=== PATIENT | female | born 1995 ===

== ENCOUNTER 2017-12-18 00:59 | Emergency (ER) | payer OTHER ==
[~2017-12-18] VITALS: Ht 160 cm; Wt 60.8 kg
[2017-12-18 01:07] VITALS: TEMP 36.8; Ht 160 cm; Wt 60.8 kg
[2017-12-18] MEDS ORDERED: KETOROLAC TROMETHAMINE 60 MG/2 ML VIAL ONE (01:23)
[2017-12-18] MEDS ORDERED: HYDROmorphone INJ 1 MG/ML SYR ONE (01:33)
[2017-12-18] MEDS ORDERED: HYDROmorphone INJ 1 MG/ML SYR IM STA (01:34)
--- NOTE | 2017-12-18 02:13 | EMERGENCY ROOM VISIT NOTE ---
ED Visit Note First contact with patient: 01:07 CHIEF COMPLAINT: Shoulder pain HISTORY OF PRESENT ILLNESS: This patient complains of left shoulder pain after reaching for her keys over her head. Patient has a history of shoulder dislocation and symptoms similar. Pain currently 8 out of 10. Worse with movement and better with rest. It does not radiate.. There is marked limitation of motion of the arm because of the pain. The patient did not hear a cracking the sound at the time of the injury. The pain is steady and severe and much worse with any movement of the arm. Patient states her blood pressure normally runs low and 90/60 is normal for her. REVIEW OF SYSTEMS: A 6 system review of systems was completed with positives and pertinent negatives listed in the HPI. PMH: The patient is healthy; there is no significant medical or surgical history. Patient has a history of recurrent shoulder dislocation SOCIAL HISTORY: Patient lives at home. Non-smoker, no excessive alcohol use. [employer] student. PHYSICAL EXAM: Vital Signs: Reviewed nurse's notes. The shoulder is slightly swollen and deformed on inspection. There is a palpable defect on the anterior aspect of the shoulder and the entire anterior shoulder is tender. The range of motion is markedly reduced in all directions because of the pain. There is no tenderness of the distal clavicle. The lungs are clear to auscultation. EMERGENCY DEPARTMENT COURSE: An X-ray of the shoulder shows an anterior, inferior dislocation. The patient consented to procedure and patient was given Toradol and Dilaudid. Anterior Shoulder Dislocation Reduction Indication: Shoulder dislocation Verbal consent obtained. Risks and benefits were explained with the usual customary discussion. A time out was taken. Neurovascular examination before the procedure revealed intact. The left shoulder glenohumeral dislocation was reduced by placing the patient prone and applying gentle downward inline traction on the humerus, with the elbow flexed at 90 degrees, while scapula manipulation was applied. This resulted in an easy reduction without complication. Neurovascular examination after the procedure revealed intact. The patient had significant pain relief and tolerated the procedure well. Post reduction x-ray showed that the head of the humerus was back in the anatomical position. A shoulder sling was placed and the patient was instructed as below. Patient was advised to follow-up orthopedics for definitive care for her recurrent shoulder dislocation. Patient was advised to return to the ER immediately for severe pain, numbness, tingling, worsening signs or symptoms or as needed. She is discharged home in stable condition with friend driving. DIAGNOSIS: Shoulder dislocation, left DISCHARGE INSTRUCTIONS & TREATMENT: DO NOT drive, drink alcohol, operate machinery, or perform dangerous activities today. You were given medications in the ER that can affect your ability to safely function or operate a vehicle. Ibuprofen(Motrin, Advil) may be used for fever or pain. Use 600mg every six hours as needed. Take with food. Avoid using more than 2400mg in a 24 hour period. Do not use 2400mg per day for more than three consecutive days without physician direction. Prolonged inappropriate use can lead to stomach upset or ulcers. This medication can be taken if you need to drive, work, or perform activities which may be dangerous when taking narcotic pain medication. (AND/OR) Acetaminophen(Tylenol) may be used for fever or pain. Use 1000mg every six hours as needed. Avoid using more than 3000mg in a 24 hour period. This medication can be taken if you need to drive, work, or perform activities which may be dangerous when taking narcotic pain medication. Ice compresses for 20 minutes at a time four times daily for 2-3 days. Use the sling as instructed. Remove your arm from the sling 4-6 times a day and move all the joints around to keep them loose. Rest and elevate your injury. Continue current medications. Return to the ER immediately for any numbness, tingling, severe pain, extreme swelling in the extremity or as needed. Call Orthopedics tomorrow to arrange follow up for your injury. Current/Historical Medications No Active Prescriptions or Reported Meds Allergies Coded Allergies: No Known Allergies (Unverified , 12/18/17) Vital Signs Date Time Temp Pulse Resp B/P (MAP) Pulse Ox O2 Delivery O2 Flow Rate FiO2 12/18/17 01:07 36.8 60 20 91/47 99 Room Air Medications Administered Medications (Trade) Dose Ordered Sig/Juancarlos Route Start Time Stop Time Status Last Admin Dose Admin Ketorolac Tromethamine (Toradol Inj) 60 mg STK-MED ONCE .ROUTE 12/18/17 01:23 12/18/17 01:24 DC 12/18/17 01:29 60 MG Hydromorphone HCl (Dilaudid Inj) 1 mg STK-MED ONCE .ROUTE 12/18/17 01:33 12/18/17 01:34 DC 12/18/17 01:36 1 MG Departure Information Prescriptions No Active Prescriptions or Reported Meds Referrals No Doctor, Assigned (PCP) Patient Instructions [facility]
[2017-12-18 02:22] VITALS: BP 122/71; PULSE 62; O2SAT 99
--- NOTE | 2017-12-18 06:37 | DIAGNOSTIC IMAGING REPORT ---
L SHOULDER MIN 2 VIEWS ROUTINE CLINICAL HISTORY: post reduction postreduction COMPARISON: Same date 2:07 AM DISCUSSION: Anatomic alignment status post closed reduction. All major osseous structures appear intact. There is no evidence for soft tissue swelling. IMPRESSION: Anatomic alignment status post closed reduction The above report was generated using voice recognition software. It may contain grammatical, syntax or spelling errors. Electronically signed by: Yakov Ahuja M.D. 12/18/2017 6:36 AM Dictated Date/Time: 12/18/2017 6:35 AM
--- NOTE | 2017-12-18 06:38 | DIAGNOSTIC IMAGING REPORT ---
L SHOULDER MIN 2 VIEWS ROUTINE CLINICAL HISTORY: PAIN trauma COMPARISON: None. DISCUSSION: Anterior dislocation. Mild Hill-Sachs type deformity. All remaining osseous structures are unremarkable. There is no evidence for soft tissue swelling. IMPRESSION: Anterior dislocation. Potential mild Hill-Sachs deformity. The above report was generated using voice recognition software. It may contain grammatical, syntax or spelling errors. Electronically signed by: Yakov Ahuja M.D. 12/18/2017 6:37 AM Dictated Date/Time: 12/18/2017 6:36 AM
== END 2017-12-18 02:25 | disposition home or self-care (01) ==
LOC: C.EDB 01:00 → C.EDA 02:25
DX: S43.015A Anterior dislocation of left humerus, initial encounter (principal); X50.9XXA Other and unspecified overexertion or strenuous movements or postures, initial encounter